=== PATIENT | female | born 2005 | race Two or more races ===

== ENCOUNTER 2024-08-31 00:27 | Emergency (ER) | payer MEDICAID, SELFPAY ==
[2024-08-31 00:27] VITALS: BMI 41.7
[2024-08-31 00:55] VITALS: BP 137/89; PULSE 97; RESP 20; TEMP 37.3; O2SAT 98
[2024-08-31] MEDS: MG HYD/AL HYD/SIME (Maalox Reg) SUSP 30 ML UDC PO (01:30)
[2024-08-31] MEDS: FAMOTIDINE 20 MG TABLET 40 MG PO (01:30)
[2024-08-31] MEDS: ONDANSETRON ODT 4 MG TABRAP PO (01:31)
--- NOTE | 2024-08-31 02:31 | PD.EDRME ---
Rapid Medical Screening Exam RME Arrival date/time: 08/31/24 00:27 19F with no significant PMH presents to ED with 1 day of burning epigastric pain and N/V. Chief Complaint: Abdominal Pain Time Seen by Provider: 08/31/24 01:03 Vital signs: Vital Signs Temperature 99.1 F 08/31/24 00:55 Pulse Rate 97 08/31/24 00:55 Respiratory Rate 20 08/31/24 00:55 Blood Pressure 137/89 H 08/31/24 00:55 Pulse Oximetry (%) 98 08/31/24 00:55 Oxygen Delivery Method Room Air 08/31/24 00:55
== END 2024-08-31 02:29 | disposition left against medical advice (07) ==
LOC: SERX 03:32
PROVIDERS: Emergency Provider Emergency Medicine
DX: R10.13 Epigastric pain (principal); Z53.29 Procedure and treatment not carried out because of patient's decision for other reasons
CPT/HCPCS: 99281; Q0162; A9270

== ENCOUNTER 2024-12-07 18:37 | Emergency (ER) | payer MEDICAID, SELFPAY ==
[2024-12-07 19:28] VITALS: BP 129/88; PULSE 86; RESP 16; TEMP 36.9; O2SAT 97
--- NOTE | 2024-12-07 19:38 | PD.EDABDPN ---
ED Abdominal Pain RME/HPI General Chief Complaint: Abdominal Pain Stated complaint: Abdominal pain today, vomiting today, chest pain Time seen by provider: 12/07/24 19:37 Arrival date/time: 12/07/24 18:37 RME / HPI RME / HPI narrative: This section includes all my notes and documentations, including HPI, PE, and ED course. Ronald Harris MD HPI: 19 y/o female presents with epigastric abdominal pain that radiates to the chest with vomiting and not eating x 24 hours. Denies fever and diarrhea. No other complaints. ROS: All negative except as documented in HPI. Physical Exam: General: Alert and oriented. In obvious pain. Eyes: Conjunctivae and lids clear. ENT: No nasal congestion. Neck: Supple. Heart: RRR. Lungs: No respiratory distress. Good air movement. No rhonchi, wheezing, rales. Abdomen: Soft. Moderate epigastric tenderness. Normal bowel sounds. No distension. No rebound or guarding. Back: No CVA tenderness. Skin: Warm and dry. Neuro: Alert and oriented X 3. I reviewed all diagnostic test results: My review of the US report is: Cholelithiasis. Consider MRCP follow-up to assess the enlarged common bile duct and prominent pancreas. My review of the CT report is: Severe acute pancreatitis. Blood tests and urine tests remarkable for WBC 16.6, AST 170, ALT 237, amylase 134, and lipase 446. Influenza: Negative. At this point, diagnoses include: Pancreatitis, Cholecystitis. Treatment here included: Pepcid 20 mg, Toradol 30 mg, Morphine 4 mg, Zofran 4 mg, Protonix 40 mg, IV fluid, Zosyn, Dilaudid 2 mg. No MRCP available here at this facility at this time. I discussed the case with Dr. Garcia at [facility]. About the presentation and exam and diagnostics and treatments here. And need of further care in the hospital there. Will accept the patient. Ronald Harris MD Related Data Previous Rx's ?Medication ?Instructions ?Recorded acetaminophen 300 mg-codeine 30 mg 1 tab PO TID #10 tabs 01/24/18 tablet (Tylenol-Codeine #3) cephalexin 500 mg capsule (Keflex) 500 mg PO BID #20 caps 01/24/18 sulfamethoxazole 800 1 tab PO BID #20 tabs 01/24/18 mg-trimethoprim 160 mg tablet (Bactrim DS) Allergies Allergy/AdvReac Type Severity Reaction Status Date / Time No Known Allergies Allergy Verified 12/07/24 18:42 Review of Systems Review of Systems Systems Reviewed: All systems reviewed, normal except as documented ED Exam Narrative Physical exam: Refer to HPI above Course Quality Measures none Orders Category Date Time Status Bedside Influenza A&B Antigen Test NOW Care 12/07/24 19:38 Completed Saline [Insert IV] NOW Care 12/07/24 19:38 Completed Transfer to another facility [Transfer/Discharge] Stat Discharge 12/08/24 02:[address] abdomen pelvis wo con Stat Exams 12/07/24 19:39 Completed US gall bladder Stat Exams 12/07/24 19:39 Completed Amylase Stat Lab 12/07/24 19:47 Completed Bilirubin,Direct Stat Lab 12/07/24 19:47 Completed CBC Stat Lab 12/07/24 19:47 Completed CMP [Comprehensive Metabolic Panel] Stat Lab 12/07/24 19:47 Completed HCG Qualitative,Urine Stat Lab 12/07/24 21:54 Completed HCG,Qualitative Serum Stat Lab 12/07/24 19:47 Completed Lipase Stat Lab 12/07/24 19:47 Completed Lipid Panel Stat Lab 12/07/24 19:47 Completed Magnesium Stat Lab 12/07/24 19:47 Completed Urinalysis, C/S if Indicated Routine Lab 12/07/24 21:54 Completed Famotidine Inj [Pepcid Inj] Med 12/07/24 19:38 Discontinued 20 mg IVP X1 ONE HYDROmorphone INJ [Dilaudid Inj] Med 12/08/24 02:59 Discontinued 1 mg IVP X1 ONE Ketorolac Inj [Toradol Inj] Med 12/07/24 19:38 Discontinued 30 mg IVP X1 ONE Morphine Inj Med 12/07/24 19:38 Discontinued 4 mg IVP X1 ONE Ondansetron Inj [Zofran Inj] Med 12/07/24 19:38 Discontinued 4 mg IVP X1 ONE Ondansetron Inj [Zofran Inj] Med 12/08/24 02:59 Discontinued 4 mg IVP X1 ONE Pantoprazole Inj [Protonix Inj] Med 12/07/24 19:38 Discontinued 40 mg IVP X1 ONE Piper/Tazo 3.375 gm Premix [Zosyn] Med 12/08/24 02:58 Discontinued 3.375 gm in 50 ml IV X1 Sodium Chloride 0.9% 1000 ml [Ns] 1,000 ml Med 12/07/24 19:38 Discontinued IV 999 mls/hr Sodium Chloride 0.9% 1000 ml [Ns] 1,000 ml Med 12/08/24 02:59 Discontinued IV 999 mls/hr Vital Signs Vital signs: Vital Signs Temperature 98.4 F 12/07/24 19:28 Pulse Rate 86 12/07/24 19:28 Respiratory Rate 16 12/07/24 19:28 Blood Pressure 129/88 H 12/07/24 19:28 Pulse Oximetry (%) 97 12/07/24 19:28 Oxygen Delivery Method Room Air 12/07/24 19:28 Abdominal Pain MDM MDM Narrative MDM Narrative:: Scribe Attestation: IJoanne, am scribing for and in the presence of Dr. Harris. Provider Notation: Although this document has been carefully reviewed, there may still be some phonetic and other typographical errors.? These errors are purely grammatical due to imperfections in the software program and should not be construed in any way to? compromise the substance of the patient's medical care during this visit. 19 y/o female presents with epigastric abdominal pain that radiates to the chest with vomiting and not eating x 24 hours. Denies fever and diarrhea. No other complaints. Patient data External records reviewed:: [facility] previous records (Reviewed prior ED records from 12/31/22. Patient was seen for Otitis externa.) Clinical information provided by:: patient Social determinants that could affect healthcare access:: none Patient has the following chronic illnesses:: None reported How is presenting disease/condition affected by chronic disease/condition?: no chronic disease Evaluation data The following diagnostics were reviewed and interpreted by me:: lab results and radiology exam(s) Lab and/or radiology exams considered but not ordered:: None Interpretation Summary: I reviewed all diagnostic test results: My review of the US report is: Cholelithiasis. Consider MRCP follow-up to assess the enlarged common bile duct and prominent pancreas. My review of the CT report is: Severe acute pancreatitis. Blood tests and urine tests remarkable for WBC 16.6, AST 170, ALT 237, amylase 134, and lipase 446. Influenza: Negative. Medications / Prescriptions Medications or Prescriptions considered but not ordered:: None Medication administrations:: Medication Administration History Discontinued Medications Famotidine (Famotidine Inj 10 Mg/Ml Vial 2 Ml) 20 mg IVP X1 ONE Stop: 12/07/24 19:39 Last Admin: 12/07/24 20:02 Dose: 20 mg Documented By: WO Hydromorphone HCl (Hydromorphone Inj 2 Mg/Ml Vial) 1 mg IVP X1 ONE Stop: 12/08/24 03:00 Last Admin: 12/08/24 03:10 Dose: 1 mg Documented By: BD Sodium Chloride (Ns) 1,000 mls @ 999 mls/hr IV .Q1H1M ONE Stop: 12/07/24 20:38 Last Infusion: 12/07/24 21:36 Dose: Infused Documented By: Admin: 12/07/24 20:03 Dose: 999 mls/hr Documented By: AKUA Piperacillin/Tazobactam/Dextrose (Zosyn) 3.375 gm in 50 mls @ 100 mls/hr IV X1 ONE Stop: 12/08/24 03:27 Last Infusion: 12/08/24 03:53 Dose: Infused Documented By: Admin: 12/08/24 03:11 Dose: 100 mls/hr Documented By: BD Sodium Chloride (Ns) 1,000 mls @ 999 mls/hr IV .Q1H1M ONE Stop: 12/08/24 03:59 Last Infusion: 12/08/24 04:16 Dose: Infused Documented By: Admin: 12/08/24 03:10 Dose: 999 mls/hr Documented By: BD Ketorolac Tromethamine (Ketorolac Inj 30 Mg/Ml Vial) 30 mg IVP X1 ONE Stop: 12/07/24 19:39 Last Admin: 12/07/24 20:45 Dose: 30 mg Documented By: BD Morphine Sulfate (Morphine Sulf Inj 10 Mg/Ml Vial) 4 mg IVP X1 ONE Stop: 12/07/24 19:39 Last Admin: 12/07/24 20:02 Dose: 4 mg Documented By: AKUA Ondansetron HCl (Ondansetron Inj 2 Mg/Ml Inj 2 Ml) 4 mg IVP X1 ONE; Protocol Stop: 12/07/24 19:39 Last Admin: 12/07/24 20:02 Dose: 4 mg Documented By: AKUA Ondansetron HCl (Ondansetron Inj 2 Mg/Ml Inj 2 Ml) 4 mg IVP X1 ONE; Protocol Stop: 12/08/24 03:00 Last Admin: 12/08/24 03:10 Dose: 4 mg Documented By: RADHA Pantoprazole Sodium (Pantoprazole Inj 40 Mg Vial) 40 mg IVP X1 ONE Stop: 12/07/24 19:39 Last Admin: 12/07/24 20:01 Dose: 40 mg Documented By: AKUA Pepcid 20 mg, Toradol 30 mg, Morphine 4 mg, Zofran 4 mg, Protonix 40 mg, IV fluid, Zosyn, Dilaudid 2 mg. Consultations Consultation(s) initiated? (list below): Yes Consultation #1 (Physician, Specialty, Details): I discussed the case with Dr. Garcia at [facility]. About the presentation and exam and diagnostics and treatments here. And need of further care in the hospital there. Will accept the patient for transfer. Time: 02:51 Diagnosis Differential diagnosis abdominal pain: abdominal pain, acute appendicitis, calculus of kidney, constipation, diverticulitis, endometriosis, gastroenteritis, pancreatitis and small bowel obstruction Most likely diagnosis given after review of the tests above:: Pancreatitis, Cholecystitis. Admission Indicated Admission indicated?: not indicated Explain why admission is indicated or not indicated:: MRCP not available at this facility at this time. Admission Request Was there a request for admission?: No Disposition Plan Disposition Plan: Transfer Critical Care Time Critical Care Time Critical Care Time: Yes Total Critical Care Time (min.): 36 Attestation: Due to a high probability of clinically significant, life threatening deterioration, the patient required my highest level of preparedness to intervene emergently and I personally spent this critical care time directly and personally managing the patient. This critical care time included obtaining a history; examining the patient; ordering and review of studies; arranging urgent treatment with development of a management plan; evaluation of patient's response to treatment; frequent reassessment; and discussions with family and other providers. It was exclusive of separately billable procedures and treating other patients and teaching time. Ronald Harris MD Discharge Plan Plan Patient Disposition: [facility] Pt Being Transferred to: [facility] Needed for Transfer: Gastroenterology Prescriptions/Referrals Prescriptions/Med Rec: No Action acetaminophen-codeine [Tylenol-Codeine #3] 300-30 mg tablet 1 tab PO TID Qty: 10 0RF sulfamethoxazole-trimethoprim [Bactrim DS] 800-160 mg tablet 1 tab PO BID Qty: 20 0RF cephalexin [Keflex] 500 mg capsule 500 mg PO BID Qty: 20 0RF Referrals: Eladio Limon MD [Primary Care Provider] - In 1 week Problem List Clinical Impression: Pancreatitis, Cholecystitis Patient/Caregiver Discharge Instructions Print Language: Arabic Stand Alone Forms: Cate Award Info., Patient Portal Info Letter
--- NOTE | 2024-12-07 19:39 | XR_ITS ---
Examination: Abdomen sonogram, Limited Date and time of exam: December 07, 2024 1012 hours INDICATIONS: Right upper abdominal pain and chest pain beginning today Technique: Real-time villasenor scale transabdominal sonographic images of the upper abdomen obtained. Findings: Multiple gallstones Gallbladder wall 0.33 cm no edema Common bile duct 0.6 cm Pancreatic head 4.4 cm Liver 19.2 cm Normal hepatopedal point when swallow Date and IVC IMPRESSION: Cholelithiasis Consider MRCP follow-up to assess the enlarged common bile duct and prominent pancreas
--- NOTE | 2024-12-07 19:39 | XR_ITS ---
Examination: CT abdomen and pelvis without contrast. Coronal 3-D reconstructions. Sagittal 2-D reconstructions. Date and time of exam:December 07, 2024 at 1112 hours Indications: Mid abdominal pain today CTDI: vol (mGy): 12.2 DLP: (mGycm): 785 Technique: Axial images of the abdomen have been obtained, 3 mm slice thickness Intravenous contrast material has not been administered. Low dose protocols were performed. One or more of the following dose reduction techniques were used; automated exposure control, adjustment of the mA and/or KV according to patient size, use of iterative reconstruction technique. Findings: Fatty infiltration throughout the liver No gallstones Marked edema surrounding the pancreas Spleen is not enlarged No renal or ureteral calculi Aorta normal size No bowel obstruction No pelvic mass Urinary bladder intact IMPRESSION: Severe acute pancreatitis, no pseudocyst
[2024-12-07 19:55] LABS: Basophils % (Auto) 0 % (0-2.5); Eosinophils % (Auto) 0 % (0-10); Hematocrit 46.1 % (36.0-46.0); Hemoglobin 15.8 g/dL (12.0-16.0); Immature Granulocytes % (Auto) 0 % (0-0); Immature Granulocytes Auto 0.05 Thou/mm3 (0.00-0.00); Lymphocytes # (Auto) 1.1 Thou/mm3 (1.0-4.8); Lymphocytes % (Auto) 7 % (10-50); Mean Corpuscular HGB Conc 34.3 g/dl (31.0-37.0); Mean Corpuscular Hemoglobin 30.5 pg (25.0-35.0); Mean Corpuscular Volume 89 fL (80-100); Monocytes # (Auto) 0.4 Thou/mm3 (0.0-0.8); Monocytes % (Auto) 2 % (0-12); Neutrophils # (Auto) 15.1 Thou/mm3 (1.8-7.7); Neutrophils % (Auto) 91 % (37-80); Nucleated Red Blood Cell % 0 /100 WBC (0); Platelet Count 410 Thou/mm3 (140-440); RDW Standard Deviation 42.3 fL (36.4-46.3); Red Blood Count 5.18 Miln/mm3 (4.00-5.20); White Blood Count 16.6 Thou/mm3 (4.5-11.0)
[2024-12-07] MEDS: PANTOPRAZOLE INJ 40 MG VIAL IVP (20:01)
[2024-12-07] MEDS: ONDANSETRON INJ 2 MG/ML INJ 2 ML 4 MG IVP (20:02)
[2024-12-07] MEDS: FAMOTIDINE INJ 10 MG/ML VIAL 2 ML 20 MG IVP (20:02)
[2024-12-07] MEDS: MORPHINE SULF INJ 10 MG/ML VIAL 4 MG IVP (20:02)
[2024-12-07] MEDS: SODIUM CHLORIDE 0.9% 1000 ML 1,000 ML 999 ML IV (20:03)
[2024-12-07 20:18] LABS: Alanine Aminotransferase 237 U/L (10-49); Albumin/Globulin Ratio 1.5 (1.2-2.2); Alkaline Phosphatase 111 U/L (46-116); Amylase 334 U/L (30-118); Anion Gap 13 (7-16); Aspartate Amino Transferase 170 U/L (0-34); BUN/Creatinine Ratio 9 Ratio (12-20); Bilirubin,Direct 0.2 mg/dL (0.0-0.3); Bilirubin,Total 0.6 mg/dL (0.3-1.2); Blood Urea Nitrogen 7 mg/dL (9-23); Calcium 9.5 mg/dL (8.3-10.6); Calcium (Corrected) 9.5 mg/dL (8.5-10.1); Carbon Dioxide 24.2 mMol/L (20.0-31.0); Chloride 102 mMol/L (98-107); Creatinine (Component) 0.8 mg/dL (0.6-1.3); Globulin 3.4 gm/dL (2.3-3.5); Glucose 218 mg/dL (74-106); Lipase 446 U/L (12-53); Magnesium 1.9 mg/dL (1.6-2.6); Osmolality,Calculated 282 (275-295); Potassium 4.4 mMol/L (3.4-5.1); Sodium 139 mMol/L (136-145); Total Protein 8.4 gm/dL (5.7-8.2); eGFR > 60 See Note
--- NOTE | 2024-12-07 20:24 | PC.NURSE ---
in and out not done pt was able to urinate on own
[2024-12-07 20:26] VITALS: BMI 51.0
[2024-12-07 20:28] LABS: HCG,Qualitative Serum Negative
--- NOTE | 2024-12-07 20:39 | PC.NURSE ---
called pharmacy pt toradol on hold for , pt is neg
[2024-12-07] MEDS: KETOROLAC INJ 30 MG/ML VIAL IVP (20:45)
[2024-12-07 21:00] VITALS: BP 161/90; PULSE 80; RESP 16; TEMP 36.9; O2SAT 100
[2024-12-07 21:19] LABS: Cholesterol 171 mg/dL (132-200); HDL Cholesterol 43 mg/dL (40-60); LDL Cholesterol,Calculated 109 mg/dL (0-130); Triglycerides 94 mg/dL (30-150)
[2024-12-07 22:01] LABS: Collection Type, Urine Voided
[2024-12-07 22:07] LABS: HCG Qualitative,Urine Negative
[2024-12-07 22:08] LABS: Bilirubin,Urine Negative (Negative); Blood,Urine 1+ (Negative); Clarity,Urine Clear (Clear/Hazy); Color,Urine Lt-Yellow (Lt Yel-Yel); Culture Indicated,Urine Not Indicated; Glucose, Urine Trace (Negative); Ketones,Urine 1+ (Negative); Leukocyte Esterase,Urine Negative (Negative); Nitrite,Urine Negative (Negative); Protein,Urine 1+ (Neg - Trace); RBC,Urine 21 /hpf (0-3); Specific Gravity,Urine 1.026 (1.001-1.035); Squamous Epithelial Cell,Urine 4 /hpf (0-5); Urobilinogen,Urine Negative mg/dL (0.0-1.0); WBC,Urine 1 /hpf (0-5)
[2024-12-07 23:00] VITALS: BP 155/98; PULSE 88; RESP 16; TEMP 37; O2SAT 98
[2024-12-08 01:00] VITALS: BP 154/96; PULSE 94; RESP 17; TEMP 36.9; O2SAT 94
--- NOTE | 2024-12-08 02:42 | PC.NURSE ---
0242 CONTACTED [facility] SENT PT PKT, SHAYNE WILL RETURN CALL AFTER REVIEW OF PKT SENT.
--- NOTE | 2024-12-08 02:52 | PC.NURSE ---
0251 ANITH[facility] RETURNED CALL AT THIS TIME SPEAKING WITH DR GARCIA.
--- NOTE | 2024-12-08 02:56 | PC.NURSE ---
THIS PT IS ACCEPTED TO [facility] BY DR. BARAJAS. THIS IS A ER:ER TRANSFER AND NUMBER FOR REPORT IS [phone]. SHAYNE WAS THE FACILITY REP I SPOKE WITH FOR ACCEPTING INFORMATION.
[2024-12-08] MEDS: HYDROmorphone INJ 2 MG/ML VIAL 1 MG IVP (03:10)
[2024-12-08] MEDS: ONDANSETRON INJ 2 MG/ML INJ 2 ML 4 MG IVP (03:10)
[2024-12-08] MEDS: SODIUM CHLORIDE 0.9% 1000 ML 1,000 ML 999 ML IV (03:10)
[2024-12-08] MEDS: PIPER/TAZO 3.375 GM PREMIX 3.375 GM/50 ML BAG IV (03:11)
[2024-12-08 03:15] VITALS: BP 137/97; PULSE 97; RESP 16; TEMP 36.9; O2SAT 100
== END 2024-12-08 04:26 | disposition short-term general hospital (02) ==
PROVIDERS: Emergency Provider Emergency Medicine; PCP Family Medicine
DX: K85.90 Acute pancreatitis without necrosis or infection, unspecified (principal); K80.10 Calculus of gallbladder with chronic cholecystitis without obstruction; Z75.1 Person awaiting admission to adequate facility elsewhere
CPT/HCPCS: 36415; 74176; 76705; 80053; 80061; 81001; 81025; 82150; 82248; 83690; 83735; 84703; 85025; 87400; 96361; 96365; 96375; 96376; 99291; J1171; J1885; J2270; J2405; J2470; J2543; J3490; J7030